=== PATIENT | male | born 1960 | race Caucasian/White ===

== ENCOUNTER 2017-10-24 21:22 | Emergency (ER) | payer SELFPAY ==
[2017-10-24 21:23] VITALS: BMI 31.4
[2017-10-24 22:24] VITALS: BP 119/59; PULSE 80; RESP 16; TEMP 98.3; O2SAT 96
--- NOTE | 2017-10-24 22:42 | C.PDOC ---
History Of Present Illness 57 yo male w/PMHx of sciatica come in for evaluation of Right sided lower back pain gradually developed for past week. Pt admits, " heavy lifting at work". Pt describes pain as Right sided lower back, aching with intermittent radiation to Right buttock and leg, worse with movement. Pt sts, today, was unable to get up from pain. Otherwise, pt denies known trauma or injury, fever, chills, neck pain , CP, abd. pain, N/V/D, UTI sx, saddle anesthesia, incontinence, denies weakness , sensory or vascular deficits to B?L LEs. Ambulate to ED for evaluation, appears in pain. Time Seen by Provider: 10/24/17 22:34 Chief Complaint (Nursing): Back Pain History Per: Patient Onset/Duration Of Symptoms: Gradual Past Medical History Reviewed: Historical Data, Nursing Documentation, Vital Signs Vital Signs: Last Vital Signs Temp 98.3 F 10/24/17 22:19 Pulse 80 10/24/17 22:19 Resp 16 10/24/17 22:19 BP 119/59 L 10/24/17 22:19 Pulse Ox 96 10/24/17 22:42 - Medical History PMH: Back Problems, Chronic Pain Family History: States: Unknown Family Hx - Social History Hx Tobacco Use: No Hx Alcohol Use: No Hx Substance Use: No - Immunization History Hx Tetanus Toxoid Vaccination: No Hx Influenza Vaccination: No Hx Pneumococcal Vaccination: No Review Of Systems Except As Marked, All Systems Reviewed And Found Negative. Constitutional: Negative for: Fever, Chills ENT: Negative for: Throat Pain, Throat Swelling Cardiovascular: Negative for: Chest Pain Respiratory: Negative for: Cough, Shortness of Breath, Wheezing Gastrointestinal: Negative for: Nausea, Vomiting, Abdominal Pain, Diarrhea Genitourinary: Negative for: Incontinence Musculoskeletal: Positive for: Back Pain Skin: Negative for: Rash Neurological: Negative for: Weakness, Numbness, Altered Mental Status, Headache , Dizziness Physical Exam - Physical Exam Appears: Well, No Acute Distress Skin: Normal Color, Warm, Dry, No Rash Eye(s): bilateral: PERRL Throat: No Erythema, No Drooling Neck: No Midline Cervical Tenderness, No Paracervical Tenderness, No Step Off Deformity, Supple Gastrointestinal/Abdominal: Soft, No Tenderness, No Distention, No Guarding, No Rebound Back: No CVA Tenderness, No Vertebral Tenderness, No Decreased ROM, Paraspinal Tenderness (Right lumbar extend down to Right gluteus and posterior thigh. No skin changes.) Extremity: Normal ROM, No Pedal Edema, No Deformity, No Swelling Neurological/Psych: Oriented x3, Normal Speech, Normal Motor, Normal Sensation, Normal Reflexes ED Course And Treatment O2 Sat by Pulse Oximetry: 96 Pulse Ox Interpretation: Normal Progress Note: On re-evaluation, pt is afebrile, hemodynamicaly stable. Non- toxic. Ambulatory in ED with stable gait. FSBS 80. Neck: Supple. ENT: No acute findings. ABd: benign, (-) guaridng, (-) rebound. Back: (-) CVA tenderness. Neuorlogicaly intact. Pt has clinical findings c/w lumbar radiculopathy/sciatica. Pt advised. ref. to f/u with PMD in 2-3 days for re- eval. return to ED if any worsening or new changes. Disposition Counseled Patient/Family Regarding: Studies Performed, Diagnosis, Need For Followup, Rx Given - Disposition Referrals: Luis F Ashley MD [Staff Provider] - Disposition: HOME/ ROUTINE Disposition Time: 23:13 Condition: STABLE Additional Instructions: Light duty to lower back, avoid heavy lifting Take pain medication as prescribed Follow up with PMD in 2-3 days for re-evaluation. Return to ED if any worsening or new changes. Prescriptions: Methocarbamol [Robaxin] 500 mg PO TID #14 tab Prednisone [Deltasone] 20 mg PO DAILY #3 tablet traMADol [Ultram] 50 mg PO TID #7 tab Instructions: Sciatica (ED) Forms: [employer] (Turkish) Print Language: PASHTO - Clinical Impression Clinical Impression: Sciatica
== END 2017-10-25 00:06 | disposition home or self-care (01) ==
LOC: C.ER 21:22
DX: M54.30 Sciatica, unspecified side (principal)
CPT/HCPCS: 82948; 96372; 99283; J1885

== ENCOUNTER 2017-12-13 19:10 | Emergency (ER) | payer SELFPAY ==
[2017-12-13 19:10] VITALS: BMI 31.4
[2017-12-13 19:45] VITALS: RESP 20; O2SAT 100
[2017-12-13] MEDS ORDERED: Dexamethasone 4 mg/1 ml IM STA (20:19)
--- NOTE | 2017-12-13 21:01 | C.PDOC ---
History Of Present Illness Patient is a 57 y/o male who presents to the ED with a complaint of intermittent right sided lower back pain for the past 2 months. Patient describes pain as sharp and radiating down the right leg. Patient was seen in ER 2 months ago and diagnosed with sciatica; patient reports regardless of continuing medications, the symptoms persisted. Denies any trauma, numbness, weakness, or bowel and bladder incontinence. No other physical complaints at this time. Time Seen by Provider: 12/13/17 19:52 Chief Complaint (Nursing): Back Pain History Per: Patient History/Exam Limitations: no limitations Onset/Duration Of Symptoms: Days (2 months), Intermittent Episodes Current Symptoms Are (Timing): Still Present Quality Of Discomfort: Sharp Pain Scale Rating Of: 7 Previous Symptoms: Back Pain Associated Symptoms: denies: Incontinence, New Weakness, New Numbness Exacerbating Factor(s): Turning, Movement Recent travel outside of the [place]: No Past Medical History Reviewed: Historical Data, Nursing Documentation, Vital Signs Vital Signs: Last Vital Signs Temp 98.1 F 12/13/17 21:32 Pulse 65 12/13/17 21:32 Resp 20 12/13/17 21:32 BP 135/80 12/13/17 21:32 Pulse Ox 100 12/13/17 21:32 - Medical History PMH: Back Problems, Chronic Pain Other PMH: sciatica Surgical History: No Surg Hx Family History: States: No Known Family Hx - Social History Hx Tobacco Use: No Hx Alcohol Use: No Hx Substance Use: No - Immunization History Hx Tetanus Toxoid Vaccination: No Hx Influenza Vaccination: No Hx Pneumococcal Vaccination: No Review Of Systems Except As Marked, All Systems Reviewed And Found Negative. Genitourinary: Negative for: Incontinence (bowel or bladder) Musculoskeletal: Positive for: Back Pain (right-sided lower back), Leg Pain ( right leg radiated from back) Neurological: Negative for: Weakness, Numbness Physical Exam - Physical Exam Appears: Well, Non-toxic, No Acute Distress Skin: Normal Color, Warm, No Rash Head: Atraumatic, Normacephalic Eye(s): bilateral: Normal Inspection Oral Mucosa: Moist Neck: Normal ROM, No Midline Cervical Tenderness, No Paracervical Tenderness, Supple Chest: Symmetrical, No Tenderness Cardiovascular: Rhythm Regular, No Friction Rub, No Murmur Respiratory: Normal Breath Sounds, No Rales, No Rhonchi, No Wheezing Gastrointestinal/Abdominal: Soft, No Tenderness Back: No CVA Tenderness, Muscle Spasm, Paraspinal Tenderness (right sided paralumbar ) Extremity: Normal ROM, No Tenderness, No Swelling Neurological/Psych: Oriented x3, Normal Speech, Normal Motor, Normal Sensation Gait: Steady ED Course And Treatment O2 Sat by Pulse Oximetry: 100 (on RA) Pulse Ox Interpretation: Normal - Other Rad LS spine X-Ray: Interpreted by Me ( ) Interpretation: No fracture, no dislocation Medical Decision Making Medical Decision Making: Flexeril, decadron, toradol administered. LS spine ordered. On re-exam, the patient reports improvement of symptoms. Lungs are CTA, heart is RRR, abdomen is soft, non-tender and tolerating PO well. Ambulatory in the ED with steady gait. Follow up with the medical doctor/clinic within 1-2 days. Return if worsened. Disposition - Disposition Referrals: Luis F Ashley MD [Staff Provider] - Disposition: HOME/ ROUTINE Disposition Time: 21:24 Condition: STABLE Additional Instructions: Follow up with the medical doctor/clinic within 1-2 days. Return if worsened. Prescriptions: Acetaminophen [Tylenol] 325 mg PO Q6 PRN #30 tab PRN Reason: Pain, Mild (1-3) diaZEpam [Valium] 5 mg PO TID #21 tab Lidocaine 5% [Lidoderm] 1 patch TOP DAILY #10 patch Instructions: Herniated Disc Forms: [facility] (Telugu) - Clinical Impression Clinical Impression: Low back pain, Sciatica - Scribe Statement The provider has reviewed the documentation as recorded by the Scribgrace Pelaez All medical record entries made by the Scribe were at my direction and personally dictated by me. I have reviewed the chart and agree that the record accurately reflects my personal performance of the history, physical exam, medical decision making, and the department course for this patient. I have also personally directed, reviewed, and agree with the discharge instructions and disposition.
[2017-12-13 21:33] VITALS: BP 135/80; PULSE 65; TEMP 98.1
--- NOTE | 2017-12-14 08:45 | RAD ---
PROCEDURE: Radiographs of the Lumbar Spine. HISTORY: low back pain COMPARISON: No prior. FINDINGS: BONES: Normal alignment. No listhesis. No fracture. DISC SPACES: Unremarkable. OTHER FINDINGS: None. IMPRESSION: Unremarkable radiographs of the lumbar spine.
== END 2017-12-13 21:32 | disposition home or self-care (01) ==
LOC: C.ER 19:10
DX: M54.40 Lumbago with sciatica, unspecified side (principal)
CPT/HCPCS: 72100; 96372; 99284; J1100; J1885

== ENCOUNTER 2018-06-01 10:40 | Emergency (ER) | payer OTHER ==
[2018-06-01 10:40] VITALS: BMI 31.4
[2018-06-01 10:53] VITALS: BP 137/85; PULSE 79; RESP 20; TEMP 98.4; O2SAT 99
[2018-06-01] MEDS ORDERED: Lidocaine 5% Patch TD STA (11:44)
[2018-06-01] MEDS ORDERED: Lidocaine 5% Patch TD ONE (12:05)
--- NOTE | 2018-06-01 12:06 | C.PDOC ---
History Of Present Illness 57 year old male patient presents to the ER with c/o right back pain for more than x6+ months. Patient reports the pain radiates to the right leg. Patient was evaluated in [facility] multiple times diagnosed with sciatica and had negative XR. Patient also notes he had an appointment with a specialist who was supposed to inject into his spine, but was unable to go to the appointment. Patient took anti-inflammatory medication with no relief. Denies trauma, change in sensation , urinary/bowel incontinence or frequency, weakness and abdominal pain. Time Seen by Provider: 06/01/18 11:06 Chief Complaint (Nursing): Back Pain History Per: Patient History/Exam Limitations: no limitations Onset/Duration Of Symptoms: Days (x6 months) Current Symptoms Are (Timing): Still Present Past Medical History Reviewed: Historical Data, Nursing Documentation, Vital Signs Vital Signs: Last Vital Signs Temp 98.4 F 06/01/18 10:51 Pulse 79 06/01/18 10:51 Resp 20 06/01/18 10:51 BP 137/85 06/01/18 10:51 Pulse Ox 99 06/01/18 12:35 - Medical History PMH: Back Problems, Chronic Pain Family History: States: Unknown Family Hx - Social History Hx Tobacco Use: No Hx Alcohol Use: No Hx Substance Use: No - Immunization History Hx Tetanus Toxoid Vaccination: No Hx Influenza Vaccination: No Hx Pneumococcal Vaccination: No Review Of Systems Constitutional: Negative for: Other (trauma) Gastrointestinal: Negative for: Abdominal Pain Genitourinary: Negative for: Dysuria, Frequency, Incontinence Musculoskeletal: Positive for: Back Pain (right), Leg Pain (right ) Neurological: Negative for: Weakness, Numbness, Other (change in sensation) Physical Exam - Physical Exam Appears: Well, Non-toxic, No Acute Distress Skin: Normal Color, Warm, Dry Head: Atraumatic, Normacephalic Eye(s): bilateral: Normal Inspection, EOMI Nose: Normal Oral Mucosa: Moist Neck: Normal ROM, Supple Chest: Symmetrical Respiratory: No Accessory Muscle Use, Other (speaking in full sentences) Gastrointestinal/Abdominal: Normal Exam, Soft, No Tenderness Back: No CVA Tenderness, No Vertebral Tenderness, Paraspinal Tenderness (right paralumbar and buttock tenderness), Straight Leg Raising (45) Extremity: Normal ROM Extremity: Bilateral: Atraumatic Neurological/Psych: Oriented x3, Normal Speech, Normal Sensation, No Other ( focal deficits) ED Course And Treatment O2 Sat by Pulse Oximetry: 99 (RA) Pulse Ox Interpretation: Normal Progress Note: Evaluated previous XR, negative results. Plans: -- Flexeril. - - lidoderm. -- toradol. Reassess: On reassessment, patient is resting comfortably, with improvement of back pain. Patient remains afebrile, with no bony tenderness, extremity numbness or weakness, or abdominal pain. Patient is ambulatory in the emergency department with no signs of discomfort. Patient was advised to follow up with physician/clinic in 1-2 days. Knock Up Assembler used to ensure understanding, ERMA Cosme Disposition - Disposition Disposition: HOME/ ROUTINE Disposition Time: 12:00 Condition: STABLE Additional Instructions: Vaya a manning mdico o la clnica en 2-5 person sin falta, para mas evaluacin. [place] los medicamentos lois indicado. Volver a la fe de emergencia en cualquier momento si los sntomas persisten o empeoran. Prescriptions: Cyclobenzaprine [Cyclobenzaprine HCl] 10 mg PO BID PRN #14 tab PRN Reason: Muscle Spasm Naproxen [Naprosyn] 1 tab PO BID PRN #20 tab PRN Reason: Pain Instructions: Sciatica (DC) Forms: [employer] (Luxembourgish) Print Language: ANGOLAN - Clinical Impression Clinical Impression: Sciatica - PA / STAND UP COMEDIAN / Resident Statement / has reviewed & agrees with the documentation as recorded. - Scribe Statement The provider has reviewed the documentation as recorded by the Alanna Ayala Do All medical record entries made by the Scribe were at my direction and personally dictated by me. I have reviewed the chart and agree that the record accurately reflects my personal performance of the history, physical exam, medical decision making, and the department course for this patient. I have also personally directed, reviewed, and agree with the discharge instructions and disposition.
== END 2018-06-01 12:23 | disposition home or self-care (01) ==
LOC: C.ER 10:40
DX: M54.31 Sciatica, right side (principal)
CPT/HCPCS: 96372; 99283; J1885